=== PATIENT | male | born 1940 | race Caucasian/White ===

== ENCOUNTER → 2018-01-11 | Outpatient (CLI) | payer OTHER ==
[~2018-01-11] MED LIST: AMLODIPINE BESYL5 MG; CEPHALEXIN 500500 M1 PO; COUMADIN6 MG; DEPAKOTE ER500 MG; FUROSEMIDE 40 M40 MG PO; JANTOVEN6 MG; LASIX 40 MG TAB40 MG; LISINOPRIL40 MG; NORCO 5-325 TA1 EACH PO; PAIN & FEVER500 MG PO; PREDNISONE 5 MG5 MG PO; SEROQUEL 25 MG25 M1 PO; SLEEP-AID25 M1 PO; VERAPAMIL HCL360 MG; VICODIN 5-5001 EACH PO
== END ==
LOC: M.WC 12:42
DX: T81.89XA Other complications of procedures, not elsewhere classified, initial encounter (principal); S41.001A Unspecified open wound of right shoulder, initial encounter; E11.36 Type 2 diabetes mellitus with diabetic cataract; I10 Essential (primary) hypertension; I48.91 Unspecified atrial fibrillation; G47.30 Sleep apnea, unspecified; F31.9 Bipolar disorder, unspecified; Z85.828 Personal history of other malignant neoplasm of skin; Y83.8 Other surgical procedures as the cause of abnormal reaction of the patient, or of later complication, without mention of misadventure at the time of the procedure; X58.XXXA Exposure to other specified factors, initial encounter; Y93.89 Activity, other specified; Y92.89 Other specified places as the place of occurrence of the external cause; Y99.8 Other external cause status

== ENCOUNTER → 2018-04-12 | Outpatient (CLI) | payer OTHER | LOC: M.WC 09:29 | DX: T81.89XD Other complications of procedures, not elsewhere classified, subsequent encounter (principal); S40.211D Abrasion of right shoulder, subsequent encounter; S01.80XD Unspecified open wound of other part of head, subsequent encounter; E11.36 Type 2 diabetes mellitus with diabetic cataract; I10 Essential (primary) hypertension; I48.91 Unspecified atrial fibrillation; G47.30 Sleep apnea, unspecified; F31.9 Bipolar disorder, unspecified; F03.90 Unspecified dementia, unspecified severity, without behavioral disturbance, psychotic disturbance, mood disturbance, and anxiety; Z85.828 Personal history of other malignant neoplasm of skin; X58.XXXD Exposure to other specified factors, subsequent encounter; Y83.8 Other surgical procedures as the cause of abnormal reaction of the patient, or of later complication, without mention of misadventure at the time of the procedure ==

== ENCOUNTER → 2018-04-19 | Outpatient (CLI) | payer OTHER | LOC: M.WC 04:43 | DX: T81.89XD Other complications of procedures, not elsewhere classified, subsequent encounter (principal); S40.211D Abrasion of right shoulder, subsequent encounter; S01.80XD Unspecified open wound of other part of head, subsequent encounter; I10 Essential (primary) hypertension; I48.91 Unspecified atrial fibrillation; G47.30 Sleep apnea, unspecified; E11.36 Type 2 diabetes mellitus with diabetic cataract; F31.9 Bipolar disorder, unspecified; F03.90 Unspecified dementia, unspecified severity, without behavioral disturbance, psychotic disturbance, mood disturbance, and anxiety; Z85.828 Personal history of other malignant neoplasm of skin; X58.XXXD Exposure to other specified factors, subsequent encounter; Y83.8 Other surgical procedures as the cause of abnormal reaction of the patient, or of later complication, without mention of misadventure at the time of the procedure ==

== ENCOUNTER → 2018-04-26 | Outpatient (CLI) | payer OTHER | LOC: M.WC 05:10 | DX: T81.89XD Other complications of procedures, not elsewhere classified, subsequent encounter (principal); S01.80XD Unspecified open wound of other part of head, subsequent encounter; E11.36 Type 2 diabetes mellitus with diabetic cataract; I10 Essential (primary) hypertension; I48.91 Unspecified atrial fibrillation; G47.30 Sleep apnea, unspecified; F31.9 Bipolar disorder, unspecified; F03.90 Unspecified dementia, unspecified severity, without behavioral disturbance, psychotic disturbance, mood disturbance, and anxiety; Z85.828 Personal history of other malignant neoplasm of skin; X58.XXXD Exposure to other specified factors, subsequent encounter; Y83.8 Other surgical procedures as the cause of abnormal reaction of the patient, or of later complication, without mention of misadventure at the time of the procedure ==

== ENCOUNTER → 2018-05-03 | Outpatient (CLI) | payer OTHER | LOC: M.WC 04:29 | DX: T81.89XD Other complications of procedures, not elsewhere classified, subsequent encounter (principal); S01.90XD Unspecified open wound of unspecified part of head, subsequent encounter; E11.40 Type 2 diabetes mellitus with diabetic neuropathy, unspecified; E11.36 Type 2 diabetes mellitus with diabetic cataract; E66.3 Overweight; I10 Essential (primary) hypertension; I48.91 Unspecified atrial fibrillation; G47.30 Sleep apnea, unspecified; F31.9 Bipolar disorder, unspecified; F03.90 Unspecified dementia, unspecified severity, without behavioral disturbance, psychotic disturbance, mood disturbance, and anxiety; Z68.28 Body mass index [BMI] 28.0-28.9, adult; Z85.828 Personal history of other malignant neoplasm of skin; X58.XXXD Exposure to other specified factors, subsequent encounter; Y83.8 Other surgical procedures as the cause of abnormal reaction of the patient, or of later complication, without mention of misadventure at the time of the procedure ==

== ENCOUNTER → 2018-05-06 | Outpatient (CLI) | payer OTHER | LOC: M.WC 01:22 | DX: S01.80XD Unspecified open wound of other part of head, subsequent encounter (principal); E11.36 Type 2 diabetes mellitus with diabetic cataract; I10 Essential (primary) hypertension; I48.91 Unspecified atrial fibrillation; G47.30 Sleep apnea, unspecified; F31.9 Bipolar disorder, unspecified; Z85.828 Personal history of other malignant neoplasm of skin; X58.XXXD Exposure to other specified factors, subsequent encounter ==

== ENCOUNTER → 2018-05-10 | Outpatient (CLI) | payer OTHER | LOC: M.WC 03:42 | DX: T81.89XD Other complications of procedures, not elsewhere classified, subsequent encounter (principal); S41.00 Unspecified open wound of shoulder; S01.00XS Unspecified open wound of scalp, sequela; E11.36 Type 2 diabetes mellitus with diabetic cataract; I48.91 Unspecified atrial fibrillation; I10 Essential (primary) hypertension; G47.30 Sleep apnea, unspecified; H91.90 Unspecified hearing loss, unspecified ear; F31.9 Bipolar disorder, unspecified; F03.90 Unspecified dementia, unspecified severity, without behavioral disturbance, psychotic disturbance, mood disturbance, and anxiety; Z85.828 Personal history of other malignant neoplasm of skin; Y83.8 Other surgical procedures as the cause of abnormal reaction of the patient, or of later complication, without mention of misadventure at the time of the procedure ==

== ENCOUNTER → 2018-05-17 | Outpatient (CLI) | payer OTHER | LOC: M.WC 04:42 | DX: T81.89XD Other complications of procedures, not elsewhere classified, subsequent encounter (principal); S40.211D Abrasion of right shoulder, subsequent encounter; S01.00XD Unspecified open wound of scalp, subsequent encounter; E11.36 Type 2 diabetes mellitus with diabetic cataract; I10 Essential (primary) hypertension; I48.91 Unspecified atrial fibrillation; G47.30 Sleep apnea, unspecified; F31.9 Bipolar disorder, unspecified; F03.90 Unspecified dementia, unspecified severity, without behavioral disturbance, psychotic disturbance, mood disturbance, and anxiety; Z85.828 Personal history of other malignant neoplasm of skin; X58.XXXD Exposure to other specified factors, subsequent encounter; Y83.8 Other surgical procedures as the cause of abnormal reaction of the patient, or of later complication, without mention of misadventure at the time of the procedure ==

== ENCOUNTER → 2018-05-24 | Outpatient (CLI) | payer OTHER | LOC: M.WC 05:24 | DX: T81.89XD Other complications of procedures, not elsewhere classified, subsequent encounter (principal); E11.36 Type 2 diabetes mellitus with diabetic cataract; I10 Essential (primary) hypertension; I48.91 Unspecified atrial fibrillation; G47.30 Sleep apnea, unspecified; F39 Unspecified mood [affective] disorder; F03.90 Unspecified dementia, unspecified severity, without behavioral disturbance, psychotic disturbance, mood disturbance, and anxiety; Z85.828 Personal history of other malignant neoplasm of skin; Y83.8 Other surgical procedures as the cause of abnormal reaction of the patient, or of later complication, without mention of misadventure at the time of the procedure ==

== ENCOUNTER → 2018-05-31 | Outpatient (CLI) | payer OTHER | LOC: M.WC 04:59 | DX: T81.89XD Other complications of procedures, not elsewhere classified, subsequent encounter (principal); E11.36 Type 2 diabetes mellitus with diabetic cataract; I10 Essential (primary) hypertension; I48.91 Unspecified atrial fibrillation; G47.30 Sleep apnea, unspecified; F31.9 Bipolar disorder, unspecified; F03.90 Unspecified dementia, unspecified severity, without behavioral disturbance, psychotic disturbance, mood disturbance, and anxiety; Z85.828 Personal history of other malignant neoplasm of skin; Y83.8 Other surgical procedures as the cause of abnormal reaction of the patient, or of later complication, without mention of misadventure at the time of the procedure ==

== ENCOUNTER → 2018-06-07 | Outpatient (CLI) | payer OTHER | LOC: M.WC 04:56 | DX: T81.89XD Other complications of procedures, not elsewhere classified, subsequent encounter (principal); E11.36 Type 2 diabetes mellitus with diabetic cataract; I10 Essential (primary) hypertension; I48.91 Unspecified atrial fibrillation; G47.30 Sleep apnea, unspecified; F31.9 Bipolar disorder, unspecified; F03.90 Unspecified dementia, unspecified severity, without behavioral disturbance, psychotic disturbance, mood disturbance, and anxiety; Z85.828 Personal history of other malignant neoplasm of skin; Y83.8 Other surgical procedures as the cause of abnormal reaction of the patient, or of later complication, without mention of misadventure at the time of the procedure ==

== ENCOUNTER → 2018-06-14 | Outpatient (CLI) | payer OTHER | LOC: M.WC 06-13 09:30 | DX: T81.89XD Other complications of procedures, not elsewhere classified, subsequent encounter (principal); L03.811 Cellulitis of head [any part, except face]; E11.36 Type 2 diabetes mellitus with diabetic cataract; G47.30 Sleep apnea, unspecified; I10 Essential (primary) hypertension; I48.91 Unspecified atrial fibrillation; F31.9 Bipolar disorder, unspecified; F03.90 Unspecified dementia, unspecified severity, without behavioral disturbance, psychotic disturbance, mood disturbance, and anxiety; Z85.828 Personal history of other malignant neoplasm of skin; Z87.820 Personal history of traumatic brain injury; Y83.8 Other surgical procedures as the cause of abnormal reaction of the patient, or of later complication, without mention of misadventure at the time of the procedure ==

== ENCOUNTER → 2018-06-21 | Outpatient (CLI) | payer OTHER | LOC: M.WC 05:20 | DX: T81.89XD Other complications of procedures, not elsewhere classified, subsequent encounter (principal); L03.811 Cellulitis of head [any part, except face]; E11.36 Type 2 diabetes mellitus with diabetic cataract; I10 Essential (primary) hypertension; I48.91 Unspecified atrial fibrillation; G47.30 Sleep apnea, unspecified; F31.9 Bipolar disorder, unspecified; F03.90 Unspecified dementia, unspecified severity, without behavioral disturbance, psychotic disturbance, mood disturbance, and anxiety; Z85.828 Personal history of other malignant neoplasm of skin; Z87.820 Personal history of traumatic brain injury; Y83.8 Other surgical procedures as the cause of abnormal reaction of the patient, or of later complication, without mention of misadventure at the time of the procedure ==

== ENCOUNTER → 2018-06-28 | Outpatient (CLI) | payer OTHER | LOC: M.WC 04:53 | DX: T81.89XD Other complications of procedures, not elsewhere classified, subsequent encounter (principal); L03.811 Cellulitis of head [any part, except face]; E11.36 Type 2 diabetes mellitus with diabetic cataract; I10 Essential (primary) hypertension; I48.91 Unspecified atrial fibrillation; G47.30 Sleep apnea, unspecified; F31.9 Bipolar disorder, unspecified; F03.90 Unspecified dementia, unspecified severity, without behavioral disturbance, psychotic disturbance, mood disturbance, and anxiety; Z85.828 Personal history of other malignant neoplasm of skin; Y83.8 Other surgical procedures as the cause of abnormal reaction of the patient, or of later complication, without mention of misadventure at the time of the procedure ==

== ENCOUNTER → 2018-07-05 | Outpatient (CLI) | payer OTHER | LOC: M.WC 04:51 | DX: T81.89XD Other complications of procedures, not elsewhere classified, subsequent encounter (principal); L03.811 Cellulitis of head [any part, except face]; E11.36 Type 2 diabetes mellitus with diabetic cataract; G47.30 Sleep apnea, unspecified; I10 Essential (primary) hypertension; I48.91 Unspecified atrial fibrillation; F31.9 Bipolar disorder, unspecified; F03.90 Unspecified dementia, unspecified severity, without behavioral disturbance, psychotic disturbance, mood disturbance, and anxiety; Z85.828 Personal history of other malignant neoplasm of skin; Z87.820 Personal history of traumatic brain injury; Y83.8 Other surgical procedures as the cause of abnormal reaction of the patient, or of later complication, without mention of misadventure at the time of the procedure ==

== ENCOUNTER → 2018-07-12 | Outpatient (CLI) | payer OTHER | LOC: M.WC 08:14 | DX: T81.89XD Other complications of procedures, not elsewhere classified, subsequent encounter (principal); L03.811 Cellulitis of head [any part, except face]; G47.30 Sleep apnea, unspecified; I10 Essential (primary) hypertension; I48.91 Unspecified atrial fibrillation; E11.36 Type 2 diabetes mellitus with diabetic cataract; F31.9 Bipolar disorder, unspecified; F03.90 Unspecified dementia, unspecified severity, without behavioral disturbance, psychotic disturbance, mood disturbance, and anxiety; Z85.828 Personal history of other malignant neoplasm of skin; Z87.820 Personal history of traumatic brain injury; Y83.8 Other surgical procedures as the cause of abnormal reaction of the patient, or of later complication, without mention of misadventure at the time of the procedure ==

== ENCOUNTER → 2018-07-19 | Outpatient (CLI) | payer OTHER | LOC: M.WC 04:30 | DX: T81.89XD Other complications of procedures, not elsewhere classified, subsequent encounter (principal); L03.811 Cellulitis of head [any part, except face]; E11.36 Type 2 diabetes mellitus with diabetic cataract; G47.30 Sleep apnea, unspecified; I10 Essential (primary) hypertension; I48.91 Unspecified atrial fibrillation; F31.9 Bipolar disorder, unspecified; F03.90 Unspecified dementia, unspecified severity, without behavioral disturbance, psychotic disturbance, mood disturbance, and anxiety; Z87.820 Personal history of traumatic brain injury; Z85.828 Personal history of other malignant neoplasm of skin; Y83.8 Other surgical procedures as the cause of abnormal reaction of the patient, or of later complication, without mention of misadventure at the time of the procedure ==

== ENCOUNTER → 2018-07-26 | Outpatient (CLI) | payer OTHER | LOC: M.WC 04:56 | DX: T81.89XD Other complications of procedures, not elsewhere classified, subsequent encounter (principal); R21 Rash and other nonspecific skin eruption; E11.36 Type 2 diabetes mellitus with diabetic cataract; G47.30 Sleep apnea, unspecified; I10 Essential (primary) hypertension; I48.91 Unspecified atrial fibrillation; F31.9 Bipolar disorder, unspecified; F03.90 Unspecified dementia, unspecified severity, without behavioral disturbance, psychotic disturbance, mood disturbance, and anxiety; Z87.820 Personal history of traumatic brain injury; Z85.828 Personal history of other malignant neoplasm of skin; Y83.8 Other surgical procedures as the cause of abnormal reaction of the patient, or of later complication, without mention of misadventure at the time of the procedure ==

== ENCOUNTER → 2018-08-02 | Outpatient (CLI) | payer OTHER | LOC: M.WC 05:20 | DX: T81.89XD Other complications of procedures, not elsewhere classified, subsequent encounter (principal); R21 Rash and other nonspecific skin eruption; E11.36 Type 2 diabetes mellitus with diabetic cataract; G47.30 Sleep apnea, unspecified; I10 Essential (primary) hypertension; I48.91 Unspecified atrial fibrillation; F31.9 Bipolar disorder, unspecified; F03.90 Unspecified dementia, unspecified severity, without behavioral disturbance, psychotic disturbance, mood disturbance, and anxiety; Z85.828 Personal history of other malignant neoplasm of skin; Y83.8 Other surgical procedures as the cause of abnormal reaction of the patient, or of later complication, without mention of misadventure at the time of the procedure ==

== ENCOUNTER → 2018-08-09 | Outpatient (CLI) | payer OTHER | LOC: M.WC 05:17 | DX: T81.89XD Other complications of procedures, not elsewhere classified, subsequent encounter (principal); L03.811 Cellulitis of head [any part, except face]; E11.36 Type 2 diabetes mellitus with diabetic cataract; G47.30 Sleep apnea, unspecified; I10 Essential (primary) hypertension; I48.91 Unspecified atrial fibrillation; R21 Rash and other nonspecific skin eruption; F31.9 Bipolar disorder, unspecified; F03.90 Unspecified dementia, unspecified severity, without behavioral disturbance, psychotic disturbance, mood disturbance, and anxiety; Z85.828 Personal history of other malignant neoplasm of skin; Z87.820 Personal history of traumatic brain injury; Y83.8 Other surgical procedures as the cause of abnormal reaction of the patient, or of later complication, without mention of misadventure at the time of the procedure ==

== ENCOUNTER → 2018-08-16 | Outpatient (CLI) | payer OTHER | LOC: M.WC 04:44 | DX: T81.89XD Other complications of procedures, not elsewhere classified, subsequent encounter (principal); R21 Rash and other nonspecific skin eruption; E11.36 Type 2 diabetes mellitus with diabetic cataract; G47.30 Sleep apnea, unspecified; I10 Essential (primary) hypertension; I48.91 Unspecified atrial fibrillation; F31.9 Bipolar disorder, unspecified; F03.90 Unspecified dementia, unspecified severity, without behavioral disturbance, psychotic disturbance, mood disturbance, and anxiety; Z85.828 Personal history of other malignant neoplasm of skin; Y83.8 Other surgical procedures as the cause of abnormal reaction of the patient, or of later complication, without mention of misadventure at the time of the procedure ==

== ENCOUNTER → 2018-08-23 | Outpatient (CLI) | payer OTHER | LOC: M.WC 04:48 | DX: T81.89XD Other complications of procedures, not elsewhere classified, subsequent encounter (principal); R21 Rash and other nonspecific skin eruption; E11.36 Type 2 diabetes mellitus with diabetic cataract; G47.30 Sleep apnea, unspecified; I10 Essential (primary) hypertension; I48.91 Unspecified atrial fibrillation; F31.9 Bipolar disorder, unspecified; F03.90 Unspecified dementia, unspecified severity, without behavioral disturbance, psychotic disturbance, mood disturbance, and anxiety; Z85.828 Personal history of other malignant neoplasm of skin; Y83.8 Other surgical procedures as the cause of abnormal reaction of the patient, or of later complication, without mention of misadventure at the time of the procedure ==

== ENCOUNTER 2019-04-02 18:17 | Emergency (ER) | payer OTHER ==
[~2019-04-02] VITALS: Ht 182.9 cm; Wt 105.7 kg
[~2019-04-02 18:17] MED LIST changes: -VERAPAMIL HCL360 MG; +VERAPAMIL HCL360 MG PO
[2019-04-02] MEDS ORDERED: LOVASTATIN 20 M20 MG PO (19:25)
[2019-04-02] MEDS ORDERED: PROPRANOLOL 1010 MG PO (19:25)
[2019-04-02] MEDS ORDERED: XARELTO20 MG PO (19:26)
[2019-04-02] MEDS ORDERED: BACTRIM DS TAB1 EACH PO (20:05)
[2019-04-02] MEDS ORDERED: CENTANY30 GM TOP (20:05)
[2019-04-02 20:19] VITALS: BP 147/77
== END 2019-04-02 20:20 | disposition home or self-care (01) ==
LOC: M.ERS 18:17
DX: L03.115 Cellulitis of right lower limb (principal); I10 Essential (primary) hypertension; I48.91 Unspecified atrial fibrillation; G47.30 Sleep apnea, unspecified; Z88.5 Allergy status to narcotic agent; Z85.828 Personal history of other malignant neoplasm of skin

== ENCOUNTER → 2019-04-13 | Outpatient (CLI) | payer OTHER ==
[~2019-04-13] MED LIST changes: +BACTRIM DS TAB1 EACH PO; +CENTANY30 GM TOP; +LOVASTATIN 20 M20 MG PO; +PROPRANOLOL 1010 MG PO; +XARELTO20 MG PO
== END ==
LOC: M.WC 08:37
DX: E11.622 Type 2 diabetes mellitus with other skin ulcer (principal); L97.221 Non-pressure chronic ulcer of left calf limited to breakdown of skin; E11.36 Type 2 diabetes mellitus with diabetic cataract; G47.30 Sleep apnea, unspecified; I48.91 Unspecified atrial fibrillation; I10 Essential (primary) hypertension; F31.9 Bipolar disorder, unspecified; F03.90 Unspecified dementia, unspecified severity, without behavioral disturbance, psychotic disturbance, mood disturbance, and anxiety; Z85.828 Personal history of other malignant neoplasm of skin

== ENCOUNTER → 2019-04-20 | Outpatient (CLI) | payer OTHER | LOC: M.WC 04:42 | DX: L97.228 Non-pressure chronic ulcer of left calf with other specified severity (principal); E11.36 Type 2 diabetes mellitus with diabetic cataract; G47.30 Sleep apnea, unspecified; I10 Essential (primary) hypertension; I48.91 Unspecified atrial fibrillation; F31.9 Bipolar disorder, unspecified; F03.90 Unspecified dementia, unspecified severity, without behavioral disturbance, psychotic disturbance, mood disturbance, and anxiety; Z85.828 Personal history of other malignant neoplasm of skin ==

== ENCOUNTER 2019-09-29 23:42 | Inpatient (IN) | payer OTHER ==
[~2019-09-29] VITALS: Ht 180.3 cm; Wt 110.5 kg
[2019-09-29 23:44] VITALS: BP 137/93
[2019-09-30] VITALS (25 sets, daily range): BP systolic 114–145; BP diastolic 69–96
[2019-09-30 00:17] LABS: ABSOLUTE BASOPHILS 0.1 thou/uL (0.0-0.2); ABSOLUTE MONOCYTES 1.1 thou/uL (0.0-1.2); ABSOLUTE NEUTROPHILS 11.3 thou/uL (1.6-8.1); BASOPHILS 0.7 %; EOSINOPHILS 0.1 %; HEMATOCRIT 50.3 % (42.0-52.0); HEMOGLOBIN 16.9 gm/dL (14.0-18.0); LYMPHOCYTES 13.6 %; MCH 30.3 pg (26.0-34.0); MCHC 33.5 g/dL (28.0-37.0); MCV 90.3 fL (80.0-100.0); MONOCYTES 7.9 %; MPV 10.3 fl. (7.2-11.1); NUCLEATED RBCS 0 /100WBC; PLATELET COUNT* 211 thou/uL (150-400); POLYS 77.7 %; RBC 5.58 mil/uL (4.50-6.00); RDW-CV 15.3 % (10.5-14.5); WBC 14.5 thou/uL (4.0-11.0)
[2019-09-30 00:28] LABS: APTT 29.3 Seconds (25.0-31.3); INR 1.3; PROTIME 13.5 Seconds (9.20-11.50)
[2019-09-30 00:34] LABS: BE -1.2 mmol/L (-2 to +3); PCO2 36.4 mmHg (35.0-45.0); PO2 94.6 mmHg (75.0-100.0); pH 7.413 (7.340-7.450)
[2019-09-30 00:44] LABS: CALCIUM 8.5 mg/dL (8.5-10.1); CREATININE 1.2 mg/dL (0.6-1.3); POTASSIUM 5.4 mmol/L (3.5-5.1)
[2019-09-30 00:48] LABS: ALBUMIN 3.3 g/dL (3.4-5.0); TOTAL BILIRUBIN 0.4 mg/dL (<0.1-1.0)
[2019-09-30 02:37] LABS: URINE BILIRUBIN NEGATIVE (Negative); URINE BLOOD 3+ (Negative); URINE CLARITY CLEAR; URINE COLOR DARK YELLOW; URINE GLUCOSE-RANDOM NEGATIVE (Negative); URINE KETONES TRACE (Negative); URINE LEUKOCYTES NEGATIVE (Negative); URINE NITRITE NEGATIVE (Negative); URINE PROTEIN 1+ (Negative); URINE SPECIFIC GRAVITY <= 1.005 (1.005-1.030); URINE UROBILINOGEN 0.2 E.U./dl (0.2-1.0)
[2019-09-30 03:05] LABS: BACTERIA >30 Many /HPF (None Seen); CASTS None Seen /LPF (None Seen); CRYSTALS None Seen /LPF (None Seen); MUCUS 0-3 Light strn/LPF (None Seen); SQUAMOUS 0-3 Few /LPF (0-3); URINE RBC >20 Many /HPF (0-2); URINE WBC 6-15 Few /HPF (0-5); WBC CLUMPS Few (None Seen)
[2019-09-30 03:49] LABS: BE -3.2 mmol/L (-2 to +3); PCO2 34.4 mmHg (35.0-45.0); PO2 89.3 mmHg (75.0-100.0); pH 7.396 (7.340-7.450)
[2019-10-01] VITALS (38 sets, daily range): BP systolic 106–159; BP diastolic 54–109
[2019-10-01 01:42] LABS: ALBUMIN 2.8 g/dL (3.4-5.0); ALKALINE PHOSPHATASE 48 U/L (46-116); ANION GAP 9 mmol/L (7-16); BUN 33 mg/dL (7-18); CALCIUM 7.8 mg/dL (8.5-10.1); CHLORIDE 108 mmol/L (98-107); CHOLESTEROL 141 mg/dL (<200); CO2 27 mmol/L (21-32); CREATININE 1.5 mg/dL (0.6-1.3); GLUCOSE 173 mg/dL (70-99); HDL CHOLESTEROL 33 mg/dL (>40); LDL CHOLESTEROL 94 mg/dL (<100); POTASSIUM 4.4 mmol/L (3.5-5.1); SGOT 53 U/L (15-37); SGPT 41 U/L (30-65); SODIUM 144 mmol/L (136-145); TC:HDL 4.3 Ratio (Not establshd); TOTAL BILIRUBIN 0.5 mg/dL (<0.1-1.0); TOTAL PROTEIN 6.9 g/dL (6.4-8.2); TRIGLYCERIDE 74 mg/dL (<150); VLDL 15 mg/dL (<40)
[2019-10-01 01:43] LABS: SERUM ASSESSMENT CLEAR
--- NOTE | 2019-10-01 12:02 | CON ---
[facility] [address] [place] [address] CONSULTATION Name: RADHIKA BYNUM Room: [address] M.R.#: [id number] Admission: 09/30/19 Attend Phys: Preeti Souza Discharge: Date of : 38 Report #: [id number] THIS REPORT FOR: //name// CC: Austen Cruoch INDICATION: Acute stroke, likely embolic. HISTORY OF PRESENT ILLNESS: The patient is a 78-year-old gentleman with chronic atrial fibrillation. He had been chronically anticoagulated. He interrupted therapy for a few days for dental extraction. The patient was found unresponsive by family early this morning with a right hemiparesis. He was felt to be outside of the window for TPA. He has been transferred to the Intensive Care Unit for further treatment. He is not responsive at this time. PAST MEDICAL HISTORY: 1. Chronic atrial fibrillation. 2. Bipolar disorder. 3. Hypertension. 4. Hyperlipidemia. 5. Type 2 diabetes. PAST SURGICAL HISTORY: Skin cancer removed in 2014. FAMILY HISTORY: Noncontributory. SOCIAL HISTORY: The patient is a lifelong nonsmoker. He does not drink alcohol. ALLERGIES: MORPHINE. HOME MEDICATIONS: Depakote 500 mg 2 tablets daily, Colace 100 mg 2 tablets at bedtime, furosemide 40 mg daily, lisinopril 40 mg daily, rosuvastatin 5 mg nightly, Seroquel 25 mg nightly, verapamil 240 mg twice daily, and Xarelto 20 mg daily. PHYSICAL EXAMINATION: VITAL SIGNS: Stable. Blood pressure is 120/74, heart rate is in the 110s and irregular. GENERAL: This is an elderly gentleman, who is unresponsive. HEENT: Head is normocephalic, atraumatic. NECK: Without jugular venous distention. CHEST: Clear anteriorly. CARDIOVASCULAR: Reveals an irregularly irregular rhythm without [place] [address] CONSULTATION Name: RADHIKA BYNUM Room: [address] IN [facility].#: [id number] Admission: 09/30/19 Attend Phys: Preeti Souza Discharge: Date of : 38 Report #: [id number] ABDOMEN: Reveals normal bowel sounds. The abdomen is soft, nontender. EXTREMITIES: Shows no edema. Peripheral pulses are palpable. LABORATORY DATA: A 12-lead EKG shows atrial fibrillation with a controlled ventricular response rate. IMPRESSION AND RECOMMENDATIONS: 1. Embolic stroke. We will resume anticoagulation when felt to be outside of the window for hemorrhagic transformation. Continue supportive care at this time. 2. Chronic atrial fibrillation, rate mildly elevated at this time. We will use IV digoxin while the patient is n.p.o. to control rate. 3. Hypertension. Blood pressure is normal at present. We will follow and resume medications as needed. 4. Dyslipidemia. The patient has been on low dose of lovastatin. 5. Type 2 diabetes mellitus per hospitalist. <ELECTRONICALLY SIGNED> By: Tomás Camara MD, FACC 10/01/19 1202 1219 [id number] Camara MD, FACC /nt
[2019-10-01 13:18] LABS: HEMATOCRIT 45.8 % (42.0-52.0); HEMOGLOBIN 15.4 gm/dL (14.0-18.0); MCH 30.3 pg (26.0-34.0); MCHC 33.5 g/dL (28.0-37.0); MCV 90.5 fL (80.0-100.0); RBC 5.06 mil/uL (4.50-6.00); RDW-CV 15.7 % (10.5-14.5); WBC 17.6 thou/uL (4.0-11.0)
--- NOTE | 2019-10-01 16:42 | EKG ---
[place] [address] ELECTROCARDIOGRAM REPORT Name: FLETCHERRADHIKA PATEL Room: [address] ADM IN M.R.#: [id number] Admission: 09/30/19 Attend Phys: Preeti Souza Discharge: Date of : 38 Report #: [id number] THIS REPORT FOR: //name// [facility] Test Date: 2019-09-30 Test Time: 00:19:27 Pat Name: RADHIKA BYNUM Department: Room: [facility] Gender: M Commercial Real Estate Attorney: : 1940 Requested By: Nika Palmer Order Number: [id number] MD: Tomás Camara Measurements Intervals Coleman Rate: 107 P: [place]: QRS: -65 QRSD: 103 T: 73 QT: 370 QTc: 494 Interpretive Statements Atrial fibrillation Inferior infarct, old Anterior infarct, old Compared to ECG 05/19/2013 09:17:20 Left-axis deviation no longer present Myocardial infarct finding still present Electronically Signed On 10-01-2019 16:42:04 [employer] ATTENDANT by Tomás Camara [email or web address] <ELECTRONICALLY SIGNED> By: Tomás Camara MD, FACC 10/01/19 1642 0019 0019 Tomás Camara MD, FAC /EPI
[2019-10-02] VITALS (23 sets, daily range): BP systolic 118–188; BP diastolic 54–109
[2019-10-02 03:06] LABS: GLYCOHEMOGLOBIN (HGB A1C) 6.5 % (4.8-5.6)
[2019-10-02 05:16] LABS: BE -2.1 mmol/L (-2 to +3)
[2019-10-02 05:18] LABS: PCO2 61.5 mmHg (35.0-45.0); PO2 244.4 mmHg (75.0-100.0); pH 7.254 (7.340-7.450)
[2019-10-03] VITALS (27 sets, daily range): BP systolic 124–178; BP diastolic 64–97
[2019-10-04] VITALS (16 sets, daily range): BP systolic 132–180; BP diastolic 63–97
== END 2019-10-04 16:03 | DRG 871 ==
LOC: M.ERS 23:42 → M.ORTHSURG 09-30 04:45 → M.TBA-ER 09-30 04:45 → M.ICU 09-30 04:45 → M.TBA-ER 09-30 10:18 → M.ORTHSURG 09-30 10:31 → M.TBA-ER 10-03 14:44 → M.ICU 10-03 14:44 → M.ORTHSURG 10-04 14:14
PROVIDERS: Emergency Medicine; Family Medicine; ADMIT Internal Medicine
DX: A41.9 Sepsis, unspecified organism (principal); J96.01 Acute respiratory failure with hypoxia; I63.512 Cerebral infarction due to unspecified occlusion or stenosis of left middle cerebral artery; G81.91 Hemiplegia, unspecified affecting right dominant side; I48.20 Chronic atrial fibrillation, unspecified; N39.0 Urinary tract infection, site not specified; N17.9 Acute kidney failure, unspecified; R47.01 Aphasia; E87.4 Mixed disorder of acid-base balance; B96.89 Other specified bacterial agents as the cause of diseases classified elsewhere; N18.3 Chronic kidney disease, stage 3 (moderate); E87.5 Hyperkalemia; E11.65 Type 2 diabetes mellitus with hyperglycemia; E11.22 Type 2 diabetes mellitus with diabetic chronic kidney disease; I12.9 Hypertensive chronic kidney disease with stage 1 through stage 4 chronic kidney disease, or unspecified chronic kidney disease; E78.5 Hyperlipidemia, unspecified; G47.33 Obstructive sleep apnea (adult) (pediatric); F31.9 Bipolar disorder, unspecified; R29.810 Facial weakness; Z66 Do not resuscitate; Z99.81 Dependence on supplemental oxygen; Z79.01 Long term (current) use of anticoagulants; Z79.899 Other long term (current) drug therapy; Z85.828 Personal history of other malignant neoplasm of skin; Z80.1 Family history of malignant neoplasm of trachea, bronchus and lung; Z80.8 Family history of malignant neoplasm of other organs or systems; Z88.5 Allergy status to narcotic agent; Z79.84 Long term (current) use of oral hypoglycemic drugs